=== PATIENT | female | born 1945 | race Caucasian/White ===

== ENCOUNTER 2023-07-01 11:31 | Emergency (ER) | payer MEDICARE, BC, SELFPAY ==
[2023-07-01] VITALS (10 sets, daily range): BP systolic 136–186; BP diastolic 88–125; PULSE 79–103; RESP 12–18; TEMP 36.7; O2SAT 94–98; BMI 33.6
--- NOTE | 2023-07-01 11:35 | ED.GENADULT ---
HPI - General Adult General Date Seen: 07/01/23 Chief complaint: Arrhythmia/Palpitations Stated complaint: irregular heartbeat Time Seen by Provider: 07/01/23 11:35 History of Present Illness HPI narrative: 78-year-old female who has a past medical history of hypertension, pericardial cyst, hyperlipidemia, colon polyps, depression, sleep apnea, obesity. She has no previous history of coronary disease or arrhythmia or previous diagnosis of AFib. According to records from [facility] obtained through [facility] medication list includes aspirin 81 mg daily, Coreg 25 mg b.i.d., losartan/hydrochlorothiazide 100/25 mg daily, verapamil 180 mg daily, levothyroxine, Tylenol, vitamin-D, vitamin B12, fluticasone nasal spray rosuvastatin 5 mg q.h.s., as well as supplements. She does recall that she has had intermittent episodes of a funny feeling in her chest off and on for several months, perhaps every month or so. She has never really had exact symptoms like today before. She has never gone to the doctor or had any cardiac monitoring or diagnosis of AFib. She does recall that in the past she had an MRI done [facility] that apparently showed a pericardial cyst. She and her have been sick for about 2 weeks with cough, nasal congestion, and upper respiratory symptoms. They actually picked up their cold while they were traveling on an airplane. is largely recovered from his illness but she has had a persistent cough and nasal congestion. Her symptoms started with nasal congestion, headache, fatigue, cough. She has had persisting nasal congestion, sinus fullness, and cough. No fever. No chest pain. No hemoptysis. She did do an at home COVID test which was negative, but she thinks the COVID test was old and may have been . She was otherwise normal yesterday. No palpitations. When she woke up in the middle the night she thought something might have felt funny in her chest but she was sleepy and went back to bed. Since she woke up this morning she has an irregular heartbeat that feels funny in her chest. No chest pain. No fainting. No trouble breathing. No swelling in her legs. Related Data Home Medications ?Medication ?Instructions ?Recorded ?Confirmed carvedilol 25 mg tablet 25 mg PO BID 07/01/23 07/01/23 levothyroxine 75 mcg tablet 75 mcg PO DAILY 07/01/23 07/01/23 losartan 100 1 tab PO DAILY 07/01/23 07/01/23 mg-hydrochlorothiazide 25 mg tablet verapamil 180 mg 24 hr 180 mg PO BID 07/01/23 07/01/23 capsule,extended release Previous Rx's ?Medication ?Instructions ?Recorded apixaban 5 mg tablet (Eliquis) 5 mg PO BID #60 tabs 07/01/23 Allergies Allergy/AdvReac Type Severity Reaction Status Date / Time No Known Drug Allergies Allergy Verified 07/01/23 11:37 [facility] Social History Smoking Status: Never smoker How often do you have a drink containing alcohol: never AUDIT-C Alcohol total score: 0 Non-prescribed substance use: denies use Exam Narrative: Exam Narrative: Primary Survey: A- patent. Speaking clearly. Phonation normal. No stridor. B- breathing easily. Lung sounds clear and equal. Oxygen saturation normal on room air C- no active bleeding. Blood pressure stable. Symmetric pulses and cap refill in 4 extremities. D- alert and oriented x3. GCS 15. No focal deficits. Constitutional: Appears well-developed and well-nourished. Alert. Conversant. Non toxic. HENT: Head: Atraumatic. Nose: Nose normal. Mouth/Throat: Oral mucosa is clear and moist. no trismus. Pharynx normal. Tonsils symmetric. No tonsillar enlargement, erythema, or exudate. Eyes: Conjunctivae normal. EOM normal. Pupils equal, round, and reactive to light. No scleral icterus. Neck: Normal range of motion. Neck supple. No tracheal deviation present. Cardiovascular: Normal rate, irregularly irregular rhythm. No gallop. No friction rub. No murmur heard. Symmetric radial and PT artery pulses . No JVD Pulmonary/Chest: Effort normal. No stridor. No respiratory distress. No wheezes. No rales. No rhonchi . No tenderness. Abdominal: Soft. Bowel sounds normal. No distension. No mass. No tenderness. No rebound. No guarding. Musculoskeletal: RUE: Normal range of motion. No tenderness. No deformity LUE: Normal range of motion. No tenderness. No deformity RLE: Normal range of motion. No edema. No tenderness. No deformity LLE: Normal range of motion. No edema. No tenderness. No deformity Neurological: Alert and oriented to person, place, and time. Normal strength. CN II-VII intact. No sensory deficit. GCS eye subscore is 4. GCS verbal subscore is 5. GCS motor subscore is 6. Normal coordination Skin: Skin is warm and dry. No rash noted. No pallor. Normal capillary refill. Psychiatric: Normal mood. Normal affect. Const: Vital Signs, click to edit/add: Vital Signs - 24 hr 07/01/23 11:35 Temperature 98.0 F Pulse Rate [Pulse Oximeter] 103 H Respiratory Rate 16 Blood Pressure [[facility]] 159/111 H Pulse Oximetry 98 Oxygen Delivery Me thod Room Air Course Vital Signs Vital signs: Initial Vital Signs Temperature 98.0 F 07/01/23 11:35 Temperature Source Temporal Artery Scan 07/01/23 11:35 Pulse Rate 103 H 07/01/23 11:35 Pulse Rhythm Irregular 07/01/23 11:35 Respiratory Rate 16 07/01/23 11:35 Blood Pressure 159/111 H 07/01/23 11:35 Blood Pressure Mean 127 H 07/01/23 11:35 Blood Pressure Position Sitting 07/01/23 11:35 Pulse Oximetry 98 07/01/23 11:35 Oxygen Delivery Method Room Air 07/01/23 11:35 Vital Signs Temperature 98.0 F 07/01/23 11:35 Pulse Rate 103 H 07/01/23 11:35 Respiratory Rate 16 07/01/23 11:35 Blood Pressure 159/111 H 07/01/23 11:35 Pulse Oximetry 98 07/01/23 11:35 Oxygen Delivery Method Room Air 07/01/23 11:35 Temperature 98.0 F 07/01/23 11:35 Pulse Rate 103 H 07/01/23 11:35 Respiratory Rate 16 07/01/23 11:35 Blood Pressure 159/111 H 07/01/23 11:35 Pulse Oximetry 98 07/01/23 11:35 Oxygen Delivery Method Room Air 07/01/23 11:35 Medications Administered Medications: Discontinued Medications Generic Name Dose Route Start Last Admin Trade Name Freq PRN Reason Stop Dose Admin Lactated Ringer's 1,000 ml 07/01/23 12:10 07/01/23 13:07 Lactated Ringers 1000 Ml IV 07/01/23 12:11 1,000 ml ONCE ONE Administration Medical Decision Making MDM Narrative Medical decision making narrative: This patent presents for evaluation of palpitations, that began sometime overnight last night and persisted to until she arrived here in the ER. EKG confirms atrial fibrillation with a controlled ventricular response rate. When asked, she says she has probably had intermittent episodes like this off and on for several months. Therefore this is not a clear new onset AFib. Chads 2 Vasc score is 4 which put her at roughly 4.8% annual risk of stroke. Therefore since this is not a definitively new onset AFib and could potentially and probably is paroxysmal AFib, would hold off on direct electrical cardioversion today. Laboratory studies are reassuring. Clinical symptoms not suggestive for ACS. She has had a recent cough, nasal congestion, and respiratory illness. She had done at home COVID test which was negative but we did repeat a COVID PCR test today and she is positive for coronavirus. At this point with 2 weeks of symptoms she would be beyond the window for treatment with Paxlovid. Unclear whether not COVID could be contributing to her AFib. At this point she is not hypoxic. No respiratory distress. No signs of renal failure. Chest x-ray negative for any infiltrates or pneumonia. At this point she does not require hospitalization from a coronavirus infection standpoint. No signs of CHF clinically or on her chest x-ray to suggest viral myocarditis. She is rate controlled, likely because she is already on carvedilol 25 mg b.i.d.. She is mildly symptomatic but hemodynamically stable. At this point I think she is safe for outpatient management. Given stroke risk ([id number] =4) I do think she needs prophylaxis. Discussed with Cardiology from [facility], Dr. Nichols We will initiate Eliquis 5 mg b.i.d. for stroke prophylaxis. Discussed with patient and the patient is in agreement. Will not change medication at this point as already beta-blocked and would not increase. Should see cardiology for consideration of oral rhythm control vs watchful waiting. Cardiology from [facility] will have the clinic call her this week to arrange an outpatient follow-up appointment. Precautions for return to the ER reviewed. Questions answered. Lab Data Labs: Lab Results 07/01/23 Range/Units 12:50 WBC 9.36 (4.50-11.00) K/uL RBC 5.01 (4.00-5.20) m/uL Hgb 14.4 (12.0-16.0) gm/dL Hct 44.3 (33.0-51.0) % MCV 88 (80-100) fL MCH 29 (26-34) pg MCHC 33 (32-36) gm/dL RDW Coeff of Marichuy 12.7 (11.5-15.5) % Plt Count 363 (140-440) K/uL Neut % (Auto) 66.8 (42.0-72.0) % Lymph % (Auto) 22.3 (20-44) % [place] % (Auto) 7.8 (0.0-11.0) % Eos % (Auto) 2.8 (0.0-7.0) % Baso % (Auto) 0.1 (0.0-3.0) % Neut # (Auto) 6.25 (1.7-7.0) K/uL Lymph # (Auto) 2.09 (0.90-2.90) K/uL [place] # (Auto) 0.70 (0.00-0.90) K/UL Eos # (Auto) 0.26 (0.00-0.50) K/uL Baso # (Auto) 0.01 (0.00-0.30) K/uL Abs Immat Gran (auto) 0.02 (0.00-0.30) K/uL Imm/Tot Granulo (auto) 0.2 % Sodium 140 (135-149) mmol/L Potassium 4.5 (3.6-5.1) mmol/L Chloride 107 (96-114) mmol/L Carbon Dioxide 27 (20-32) mmol/L Anion Gap 6 L (7-15) mEq/L BUN 23 (7-30) mg/dL Creatinine 0.6 (0.5-1.5) mg/dL Estimated Creat Clear 35.55 Estimated GFR 92 ml/min Glucose 99 (60-115) mg/dL Calcium 9.8 (8.4-10.6) mg/dL Troponin I < 0.01 L (0.01-0.04) ng/mL TSH 1.740 (0.270-4.200) uIU/mL SARS-CoV-2 (PCR) POSITIVE SARS-CoV-2 A (Negative) Influenza Type A (PCR) Negative PCR FLU A (Negative) Influenza Type B (PCR) Negative PCR FLU B (Negative) RSV (PCR) Negative PCR RSV (Negative) Imaging Data Chest x-ray: Attestation: I have reviewed the pertinent imaging results. Radiologist's impression: IMPRESSION: No imaging findings pertinent to the indication for the exam no acute findings. ECG Data Attestation: I personally reviewed and interpreted this ECG as follows: Interpretation: Atrial fibrillation Rate: 96 AK: Not applicable QRS axis: Left axis deviation. Left bundle-branch block ST segment/T wave: No ST segment elevation or depression. There is discordant ST elevation in V1 and V2 discordant from the QRS pattern and does not indicate STEMI. QTc: 480 Discharge Plan Discharge Clinical Impression: Atrial fibrillation Patient Disposition: Home, Self-Care Condition: Stable Instructions: A-fib (Atrial Fibrillation) (ED), Blood Thinners (ED) Additional Instructions: As we discussed, please continue on your current medications. We will add a new blood thinning medication called Eliquis. This is taken twice per day. 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 You should receive a phone call from the blood bank laboratory technician's at [facility] to arrange an outpatient follow-up appointment. If you do not receive a phone call from them by Sunday, call your blood bank laboratory technician (or call your primary care provider) to arrange an outpatient follow-up with Cardiology. Come back to the ER right away if you have any problems-especially if you have heart rate more than 110, chest pain, trouble breathing, dizzy spells or fainting, worsening weakness, or any other problems. Prescriptions: New Eliquis 5 mg tablet 5 mg PO BID Qty: 60 2RF No Action carvedilol 25 mg tablet 25 mg PO BID levothyroxine 75 mcg tablet 75 mcg PO DAILY verapamil 180 mg capsule,ext rel. pellets 24 hr 180 mg PO BID losartan-hydrochlorothiazide 100-25 mg tablet 1 tab PO DAILY Follow Up/Referrals: Renetta Quick PA-C [Primary Care Provider] - Stand Alone Forms: Gusto Info Instructions
--- NOTE | 2023-07-01 12:10 | CRLHL7_ITS ---
For Patients: As a result of the Cures Act, medical imaging exams and procedure reports are released immediately into your electronic medical record. You may view this report before your referring provider. If you have questions, please contact your health care provider. INDICATION: Cough. Atrial fibrillation. COMPARISON: None available. TECHNIQUE: 2 views. FINDINGS: Medical Devices: None. Lung Volumes: Adequate inspiration. No significant atelectasis. Lungs: Clear lungs. Pleura and Pleural spaces: No significant pleural effusion. No pneumothorax. Mediastinum: Normal cardiomediastinal silhouette. Bony Thorax and Soft Tissues: No significant incidental findings. IMPRESSION: No imaging findings pertinent to the indication for the exam no acute findings. Dictated by Jose Barors MD @ 07/01/2023 1:51:11 PM (Electronically Signed)
[2023-07-01 13:01] LABS: Basophils Absolute Auto 0.01 K/uL (0.00-0.30); Basophils Percent Auto 0.1 % (0.0-3.0); Eosinophils Absolute Auto 0.26 K/uL (0.00-0.50); Eosinophils Percent Auto 2.8 % (0.0-7.0); Hematocrit 44.3 % (33.0-51.0); Hemoglobin* 14.4 gm/dL (12.0-16.0); Immature Granulocytes Abs Auto 0.02 K/uL (0.00-0.30); Immature Granulocytes Pct Auto 0.2 %; Lymphocytes Absolute Auto 2.09 K/uL (0.90-2.90); Lymphocytes Percent Auto 22.3 % (20-44); Mean Corpuscular HGB Conc 33 gm/dL (32-36); Mean Corpuscular Hemoglobin 29 pg (26-34); Mean Corpuscular Volume 88 fL (80-100); Monocytes Percent Auto 7.8 % (0.0-11.0); Neutrophils Absolute Auto 6.25 K/uL (1.7-7.0); Neutrophils Percent Auto 66.8 % (42.0-72.0); Platelet Count* 363 K/uL (140-440); RDW Coefficient of Variation % 12.7 % (11.5-15.5); Red Blood Count 5.01 m/uL (4.00-5.20); White Blood Count* 9.36 K/uL (4.50-11.00)
[2023-07-01 13:05] LABS: Slide Review Reflex No
[2023-07-01] MEDS: LACTATED RINGERS 1000 ML IV (13:07)
[2023-07-01 13:14] LABS: Chloride* 107 mmol/L (96-114); Potassium* 4.5 mmol/L (3.6-5.1); Sodium* 140 mmol/L (135-149)
[2023-07-01 13:17] LABS: Anion Gap 6 mEq/L (7-15); Blood Urea Nitrogen* 23 mg/dL (7-30); Carbon Dioxide* 27 mmol/L (20-32); Creatinine* 0.6 mg/dL (0.5-1.5); Est. Creatinine Clearance* 35.55; Estimated Glomerular Filt Rate 92 ml/min; Glucose* 99 mg/dL (60-115)
[2023-07-01 13:18] LABS: Calcium* 9.8 mg/dL (8.4-10.6)
[2023-07-01 13:30] LABS: Troponin I* < 0.01 ng/mL (0.01-0.04)
[2023-07-01 13:37] LABS: PCR FLU A Negative PCR FLU A (Negative); PCR FLU B Negative PCR FLU B (Negative); PCR RSV Negative PCR RSV (Negative); SARS PCR* POSITIVE SARS-CoV-2 (Negative)
== END 2023-07-01 15:15 | disposition home or self-care (01) ==
PROVIDERS: Emergency Provider Emergency Medicine; PCP Physician Assistant Medical
DX: I48.91 Unspecified atrial fibrillation (principal)
CPT/HCPCS: 36415; 71046; 80048; 84443; 84484; 85025; 87631; 93005; 99284; 99285; J7120

== ENCOUNTER 2023-12-28 11:15 | Observation (INO) | payer MEDICARE, BC, SELFPAY ==
[2023-12-28] VITALS (14 sets, daily range): BP systolic 141–177; BP diastolic 60–80; PULSE 63–78; RESP 16–18; TEMP 36.5–37; O2SAT 93–99; BMI 35.0; BMI 36.8
--- NOTE | 2023-12-28 12:02 | ED_ITS ---
HPI - General Adult General Chief complaint: Unspecified Complaint, Adult Stated complaint: anemic/heart iss Time Seen by Provider: 12/28/23 11:20 History of Present Illness HPI narrative: This 78-year-old female and was instructed to come here for evaluation because of a drop in her hemoglobin and she is experiencing related symptoms including shortness of breath and chest discomfort with exertion. The patient had a hemoglobin measured at 8.7 yesterday. About 4 months ago it was almost 4 grams/deciliter higher than this. She does not report any blood loss. She is on Eliquis because of paroxysmal atrial fibrillation. At rest she has no symptoms but she is feeling and increase of shortness of breath and occasions of chest discomfort with exertion over the past week. She does not report any nausea or vomiting. She has not had any diaphoresis. Related Data Home Medications ?Medication ?Instructions ?Recorded ?Confirmed carvedilol 25 mg tablet 25 mg PO BID 07/01/23 12/28/23 levothyroxine 75 mcg tablet 75 mcg PO DAILY 07/01/23 12/28/23 losartan 100 1 tab PO DAILY 07/01/23 12/28/23 mg-hydrochlorothiazide 25 mg tablet verapamil 180 mg 24 hr 180 mg PO DAILY 07/01/23 12/28/23 capsule,extended release Previous Rx's ?Medication ?Instructions ?Recorded apixaban 5 mg tablet (Eliquis) 5 mg PO BID #60 tabs 07/01/23 Allergies Allergy/AdvReac Type Severity Reaction Status Date / Time No Known Drug Allergies Allergy Verified 12/28/23 11:26 Review of Systems Status of ROS: Reports: 10 or more systems reviewed and unremarkable except as noted in History and below Narrative: Constitutional: No fevers, no weight gain or loss. Eyes: No discharge. No vision changes. HENT: No congestion, no sore throat, no ear pain. Cardiovascular: No palpitations. Chest discomfort with exertion. Respiratory: No wheezes, no cough. Shortness of breath with exertion. Gastrointestinal: No abdominal pain, no vomiting, no diarrhea. Genitourinary: No dysuria, no hematuria. Musculoskeletal: Normal range of motion. Skin: No rashes, no pruritis. Neurological: No weakness, sensory change, speech change. Endo/Heme/Allergies: No bruising or bleeding. No polydipsia. Pysch: no suicidality, no anxiety, no insomnia. All other systems reviewed and are negative. [facility] Medical History (Updated 12/28/23 @ 16:56 by Trisha Espinoza MD) Coronary artery disease ?I25.10 - Atherosclerotic heart disease of [place] coronary artery without angina pectoris (ICD-10) Hyperlipidemia ?E78.5 - Hyperlipidemia, unspecified (ICD-10) Hypothyroidism ?E03.9 - Hypothyroidism, unspecified (ICD-10) Essential hypertension ?I10 - Essential (primary) hypertension (ICD-10) Atrial fibrillation ?I48.91 - Unspecified atrial fibrillation (ICD-10) Surgical History (Updated 12/28/23 @ 14:21 by Trisha Espinoza MD) Hx of colonoscopy ?Z98.890 - Other specified postprocedural states (ICD-10) S/P RAJINDER-BSO ?Z90.710 - Acquired absence of both cervix and uterus (ICD-10) ?Z90.722 - Acquired absence of ovaries, bilateral (ICD-10) ?Z90.79 - Acquired absence of other genital organ(s) (ICD-10) Social History (Updated 12/28/23 @ 16:58 by Trisha Espinoza MD) Narrative: Lives in [place] with Sarthak (medical decision maker if needed). Grown children in [place]. No concerning ETOH use, nonsmoker. Full Code. What is your current living situation?: I presently have a place to live Problems where you live: no known problems Problems where you live details: none In the past 12 months, utilities in danger of being shut off: no In the past 12 mos, have been you worried that your food would run out before you had money to buy more?: never true In the past 12 mos, the food you bought just didn't last and you didn't have money to buy more?: never true Highest level of school completed/degree received: some college, no degree Smoking Status: Former smoker How often do you have a drink containing alcohol: monthly or less How many standard drinks containing alcohol do you have on a typical day: 1 or 2 How often do you have six or more drinks on one occasion: Never AUDIT-C Alcohol total score: 1 Non-prescribed substance use: denies use Caffeine: Yes How often does anyone, including family, friends and others, physically hurt you : never How often does anyone, including family, friends and others, insult or talk down to you: never How often does anyone, including family, friends and others, threaten you with harm: never How often does anyone, including family, friends and others, scream or curse at you: never service: No Exam Narrative: Exam Narrative: Constitutional: Well-developed, well-nourished, no acute distress. HEENT: Normocephalic, atraumatic. Neck: Normal range of motion. Nontender. Supple. Heart: Regular. No murmurs. Normal rate. Intact distal pulses. Lungs: Clear to auscultation. No chest discomfort. No wheezes, rhonchi, or rales. Abdomen: Normal bowel sounds. Nontender. No rebound tenderness. Genitalia: Deferred. Back: No midline tenderness. Normal range of motion. Extremities: Normal range of motion. No injury. Skin: Intact. No rash. Warm. No erythema or pallor. Neurologic: No altered sensation. No weakness. Alert and oriented. Psychiatric: No suicidality. No anxiety or depression. No insomnia. Nursing notes and vitals signs are reviewed. Const: Vital Signs, click to edit/add: Vital Signs - 24 hr 12/28/23 11:20 12/28/23 13:00 12/28/23 13:15 Temperature 97.7 F Pulse Rate 65 64 Pulse Rate [Pulse Oximeter] 70 Respiratory Rate 16 Blood Pressure [Ri ght Upper Arm] 171/80 H Pulse Oximetry 99 96 95 Oxygen Delivery Me thod Room Air 12/28/23 13:30 12/28/23 13:45 Temperature Pulse Rate 63 69 Pulse Rate [Pulse Oximeter] Respiratory Rate Blood Pressure [Ri ght Upper Arm] Pulse Oximetry 95 97 Oxygen Delivery Me thod Course Vital Signs Vital signs: Initial Vital Signs Temperature 97.7 F 12/28/23 11:20 Temperature Source Temporal Artery Scan 12/28/23 11:20 Pulse Rate 70 12/28/23 11:20 Respiratory Rate 16 12/28/23 11:20 Blood Pressure 171/80 H 12/28/23 11:20 Blood Pressure Mean 110 H 12/28/23 11:20 Blood Pressure Position Sitting 12/28/23 11:20 Pulse Oximetry 99 12/28/23 11:20 Oxygen Delivery Method Room Air 12/28/23 11:20 Vital Signs Temperature 97.7 F 12/28/23 11:20 Pulse Rate 70 12/28/23 11:20 Respiratory Rate 16 12/28/23 11:20 Blood Pressure 171/80 H 12/28/23 11:20 Pulse Oximetry 99 12/28/23 11:20 Oxygen Delivery Method Room Air 12/28/23 11:20 Temperature 98.5 F 12/28/23 15:00 Pulse Rate 73 12/28/23 18:55 Respiratory Rate 18 12/28/23 18:55 Blood Pressure 177/80 H 12/28/23 15:00 Pulse Oximetry 98 12/28/23 15:00 Oxygen Delivery Method Room Air 12/28/23 15:00 Medications Administered Medications: Discontinued Medications Generic Name Dose Route Start Last Admin Trade Name Freq PRN Reason Stop Dose Admin Pantoprazole Sodium 40 mg 12/28/23 14:50 12/28/23 15:50 Pantoprazole Sodium 40 Mg Inj IVP 12/28/23 14:51 40 mg ONCE ONE Administration Medical Decision Making Lab Data Labs: Lab Results 12/28/23 12/28/23 Range/Units 11:56 12:12 WBC 8.44 (4.50-11.00) K/uL RBC 3.66 L (4.00-5.20) m/uL Hgb 8.7 L (12.0-16.0) gm/dL Hct 29.9 L (33.0-51.0) % MCV 82 (80-100) fL MCH 24 L (26-34) pg MCHC 29 L (32-36) gm/dL RDW Coeff of Marichuy 14.3 (11.5-15.5) % Plt Count 404 (140-440) K/uL Neut % (Auto) 65.6 (42.0-72.0) % Lymph % (Auto) 20.0 (20-44) % [place] % (Auto) 10.9 (0.0-11.0) % Eos % (Auto) 2.6 (0.0-7.0) % Baso % (Auto) 0.8 (0.0-3.0) % Neut # (Auto) 5.53 (1.7-7.0) K/uL Lymph # (Auto) 1.69 (0.90-2.90) K/uL [place] # (Auto) 0.90 (0.00-0.90) K/UL Eos # (Auto) 0.22 (0.00-0.50) K/uL Baso # (Auto) 0.07 (0.00-0.30) K/uL Abs Immat Gran (auto) 0.01 (0.00-0.30) K/uL Imm/Tot Granulo (auto) 0.1 % INR 1.21 H (0.91-1.10) Sodium 137 (135-149) mmol/L Potassium 4.1 (3.6-5.1) mmol/L Chloride 104 (96-114) mmol/L Carbon Dioxide 28 (20-32) mmol/L Anion Gap 5 L (7-15) mEq/L BUN 19 (7-30) mg/dL Creatinine 0.7 (0.5-1.5) mg/dL Estimated Creat Clear 35.55 Estimated GFR 89 ml/min Glucose 103 (60-115) mg/dL Calcium 9.9 (8.4-10.6) mg/dL Iron 36 L (37-170) ug/dL TIBC 392 (265-497) ug/dL % Saturation 9 L (20-50) % Total Bilirubin 0.1 (0.1-1.5) mg/dL Direct Bilirubin 0.1 (0.0-0.5) mg/dL AST 17 (12-35) U/L ALT 16 (4-35) U/L Alkaline Phosphatase 70 (40-150) U/L Total Protein 7.0 (6.0-8.3) g/dL Albumin 4.1 (3.3-5.0) g/dL Vitamin B12 647 (243-894) pg/mL TSH 2.470 (0.270-4.20) uIU/mL POC Troponin I 0.00 L (0.01-0.04) ng/ml Blood Type A Positive Antibody Screen NEGATIVE ECG Data Attestation: I personally reviewed and interpreted this ECG as follows: Interpretation: Normal sinus rhythm. Left bundle branch block which is not new compared to previous. Rate is 68 beats per minute.
[2023-12-28 12:26] LABS: Basophils Absolute Auto 0.07 K/uL (0.00-0.30); Basophils Percent Auto 0.8 % (0.0-3.0); Eosinophils Absolute Auto 0.22 K/uL (0.00-0.50); Eosinophils Percent Auto 2.6 % (0.0-7.0); Hematocrit 29.9 % (33.0-51.0); Hemoglobin* 8.7 gm/dL (12.0-16.0); Immature Granulocytes Abs Auto 0.01 K/uL (0.00-0.30); Immature Granulocytes Pct Auto 0.1 %; Lymphocytes Absolute Auto 1.69 K/uL (0.90-2.90); Mean Corpuscular HGB Conc 29 gm/dL (32-36); Mean Corpuscular Hemoglobin 24 pg (26-34); Mean Corpuscular Volume 82 fL (80-100); Monocytes Percent Auto 10.9 % (0.0-11.0); Neutrophils Absolute Auto 5.53 K/uL (1.7-7.0); Neutrophils Percent Auto 65.6 % (42.0-72.0); Platelet Count* 404 K/uL (140-440); RDW Coefficient of Variation % 14.3 % (11.5-15.5); Red Blood Count 3.66 m/uL (4.00-5.20); White Blood Count* 8.44 K/uL (4.50-11.00)
[2023-12-28 12:36] LABS: Slide Review Reflex No
[2023-12-28 12:38] LABS: Albumin* 4.1 g/dL (3.3-5.0)
[2023-12-28 12:39] LABS: Chloride* 104 mmol/L (96-114); Potassium* 4.1 mmol/L (3.6-5.1); Sodium* 137 mmol/L (135-149)
[2023-12-28 12:40] LABS: INR 1.21 (0.91-1.10); Prothrombin Time 16.1 Seconds
[2023-12-28 12:41] LABS: Alkaline Phosphatase* 70 U/L (40-150); Anion Gap 5 mEq/L (7-15); Aspartate Amino Transferase* 17 U/L (12-35); Bilirubin Direct* 0.1 mg/dL (0.0-0.5); Bilirubin Total* 0.1 mg/dL (0.1-1.5); Blood Urea Nitrogen* 19 mg/dL (7-30); Carbon Dioxide* 28 mmol/L (20-32); Creatinine* 0.7 mg/dL (0.5-1.5); Est. Creatinine Clearance* 35.55; Estimated Glomerular Filt Rate 89 ml/min
[2023-12-28 12:42] LABS: Alanine Aminotransferase* 16 U/L (4-35); Calcium* 9.9 mg/dL (8.4-10.6); Glucose* 103 mg/dL (60-115)
[2023-12-28 12:53] LABS: Iron* 36 ug/dL (37-170)
[2023-12-28 13:02] LABS: Percent Iron Saturation 9 % (20-50); Total Iron Binding Capacity 392 ug/dL (265-497)
[2023-12-28 13:30] LABS: Vitamin B12* 647 pg/mL (243-894)
--- NOTE | 2023-12-28 15:00 | P.IMHP_ITS ---
Hospitalist- H&P: HPI History of Present Illness Date Seen: 12/28/23 Chief complaint: anemic/heart iss Narrative: Sultana Novoa is a 78 year old female who presented to the ER at the behest of her PCP for acute on chronic dyspnea in the setting of subacute anemia. She had labs done at the [facility] last week and Hgb was 8.7 (previously 12.5 in August 2023). She was being seen for DE LEON at that time; PCP reviewed symptoms with Training Director who recommended an outpatient stress echocardiogram. Today, she was seen again in followup, Hgb stable at 8.7. Repeat EKG noted new ST depressions in II, III, aVF. Given these findings, ER visit recommended. ER Course and Findings: - EKG: SR with LBBB (not new), troponin 0 - Hgb 8.7 - VS reassuring Upon arrival to the floor, patient has no acute concerns for hospitalist. No CP at rest. Her dyspnea on exertion has been present chronically, seems worse in the past few weeks to months. Denies PND, denies orthopnea. Has mild BLE edema, stable/unchanged. Review of Systems Status of ROS: Reports: 10 or more systems reviewed and unremarkable except as noted in History and below Narrative: - sometimes has abdominal discomfort, no classic GERD symptoms - no melena, no hematochezia - last colonoscopy 2020, 4mm tubular adenoma retrieved at that time [facility] Medical History (Updated 12/28/23 @ 16:56 by Trisha Espinoza MD) Coronary artery disease ?I25.10 - Atherosclerotic heart disease of [place] coronary artery without angina pectoris (ICD-10) Hyperlipidemia ?E78.5 - Hyperlipidemia, unspecified (ICD-10) Hypothyroidism ?E03.9 - Hypothyroidism, unspecified (ICD-10) Essential hypertension ?I10 - Essential (primary) hypertension (ICD-10) Atrial fibrillation ?I48.91 - Unspecified atrial fibrillation (ICD-10) Surgical History (Updated 12/28/23 @ 14:21 by Trisha Espinoza MD) Hx of colonoscopy ?Z98.890 - Other specified postprocedural states (ICD-10) S/P RAJINDER-BSO ?Z90.710 - Acquired absence of both cervix and uterus (ICD-10) ?Z90.722 - Acquired absence of ovaries, bilateral (ICD-10) ?Z90.79 - Acquired absence of other genital organ(s) (ICD-10) Social History (Updated 12/28/23 @ 16:58 by Trisha Espinoza MD) Narrative: Lives in [place] with Sarthak (medical decision maker if needed). Grown children in [place]. No concerning ETOH use, nonsmoker. Full Code. What is your current living situation?: I presently have a place to live Problems where you live: no known problems Problems where you live details: none In the past 12 months, utilities in danger of being shut off: no In the past 12 mos, have been you worried that your food would run out before you had money to buy more?: never true In the past 12 mos, the food you bought just didn't last and you didn't have money to buy more?: never true Highest level of school completed/degree received: some college, no degree Smoking Status: Former smoker How often do you have a drink containing alcohol: monthly or less How many standard drinks containing alcohol do you have on a typical day: 1 or 2 How often do you have six or more drinks on one occasion: Never AUDIT-C Alcohol total score: 1 Non-prescribed substance use: denies use Caffeine: Yes How often does anyone, including family, friends and others, physically hurt you : never How often does anyone, including family, friends and others, insult or talk down to you: never How often does anyone, including family, friends and others, threaten you with harm: never How often does anyone, including family, friends and others, scream or curse at you: never service: No Meds Home Medications and Allergies Home Medications ?Medication ?Instructions ?Recorded ?Confirmed ?Type carvedilol 25 mg tablet 25 mg PO BID 07/01/23 12/28/23 History levothyroxine 75 mcg tablet 75 mcg PO DAILY 07/01/23 12/28/23 History losartan 100 1 tab PO DAILY 07/01/23 12/28/23 History mg-hydrochlorothiazide 25 mg tablet verapamil 180 mg 24 hr 180 mg PO DAILY 07/01/23 12/28/23 History capsule,extended release Allergies Allergy/AdvReac Type Severity Reaction Status Date / Time No Known Drug Allergies Allergy Verified 12/28/23 11:26 Exam Narrative: Exam Narrative: GEN: Alert and sitting comfortably in bed, speaking in full sentences HEENT: EOMIs bilaterally, no scleral icterus CV: RRR, No concerning murmurs R: LCTA bilaterally without concerning wheezing, air movement adequate Ab: Soft, nontender, no HSM Ext: Trace BLE edema Skin: No concerning skin lesions or rashes on exposed skin Neuro: Nonfocal Psych: Appropriate Const: Vital Signs, click to edit/add: Vital Signs - 24 hr 12/28/23 11:20 12/28/23 13:00 12/28/23 13:15 Temperature 97.7 F Pulse Rate 65 64 Pulse Rate [Pulse Oximeter] 70 Respiratory Rate 16 Blood Pressure [Le ft Arm] Blood Pressure [Ri ght Upper Arm] 171/80 H Pulse Oximetry 99 96 95 Oxygen Delivery Me thod Room Air 12/28/23 13:30 12/28/23 13:45 12/28/23 14:00 Temperature Pulse Rate 63 69 68 Pulse Rate [Pulse Oximeter] Respiratory Rate Blood Pressure [Le ft Arm] Blood Pressure [Ri ght Upper Arm] Pulse Oximetry 95 97 97 Oxygen Delivery Me thod 12/28/23 14:28 Temperature Pulse Rate Pulse Rate [Pulse Oximeter] 73 Respiratory Rate 18 Blood Pressure [Le ft Arm] 177/80 H Blood Pressure [Ri ght Upper Arm] Pulse Oximetry 98 Oxygen Delivery Me thod Room Air Hospitalist - H&P: Result Labs Labs: Short CBC 12/28/23 Range/Units 12:12 WBC 8.44 (4.50-11.00) K/uL Hgb 8.7 L (12.0-16.0) gm/dL Hct 29.9 L (33.0-51.0) % Plt Count 404 (140-440) K/uL BMP 12/28/23 12:12 Sodium 137 Potassium 4.1 Chloride 104 Carbon Dioxide 28 BUN 19 Creatinine 0.7 Glucose 103 Calcium 9.9 Liver Function 12/28/23 Range/Units 12:12 Total Bilirubin 0.1 (0.1-1.5) mg/dL Direct Bilirubin 0.1 (0.0-0.5) mg/dL AST 17 (12-35) U/L ALT 16 (4-35) U/L Alkaline Phosphatase 70 (40-150) U/L Albumin 4.1 (3.3-5.0) g/dL Assessment and Plan Assessment and plan (1) Anemia: Problem comment: - source and acuity unclear, Hgb >12 in August 2023 - follow Hgb, hold Eliquis Status: Acute (2) Atrial fibrillation: Problem comment: - diagnosed June 2023 - currently in SR, anticoagulated on Eliquis as an outpatient - last TTE August 2023: Final Impressions: 1. Normal LV size, mildly increased wall thickness, normal global systolic function with an estimated EF of 60 - 65%. 2. Severely enlarged left atrium. 3. Right ventricular cavity size is normal, global systolic RV function is normal. 4. The aortic valve is trileaflet and sclerotic, no stenosis and mild regurgitation. 5. The mitral valve is sclerotic, mild mitral regurgitation. Status: Acute (3) Dyspnea on exertion: Problem comment: - acute on chronic - anemia vs cardiac disease - CXR obtained 12/27: L linear opacities (infiltrate vs atelectasis). No cough, fever, tachycardia. Normal WBC, defer abx at this time and continue to follow - follow troponins, monitor on telemetry Status: Acute Plan - follow Hgb and Troponin - pending clinical course, possibly d/c home as early as tomorrow with outpatient EGD - updated at bedside, questions answered
--- NOTE | 2023-12-28 15:27 | CRLHL7_ITS ---
For Patients: As a result of the Century Cures Act, medical imaging exams and procedure reports are released immediately into your electronic medical record. You may view this report before your referring provider. If you have questions, please contact your health care provider. INDICATION: Dyspnea on exertion TECHNIQUE: Chest 1 views. COMPARISON: 07/01/2023 FINDINGS: Cardiovasculature and mediastinum: Cardiomegaly. Increased conspicuity of a right perihilar opacity, which is favored to represent a prominent pulmonary artery. Otherwise, unremarkable mediastinum. Lungs and pleural spaces: Few left basal linear opacities. No sign of pleural effusion. No pneumothorax. Bones and soft tissues: No significant findings. IMPRESSION: Few left basal linear opacities are indeterminate for atelectasis versus pneumonia. Dictated by Miladis Roa MD @ 12/28/2023 4:43:18 PM (Electronically Signed)
[2023-12-28] MEDS: PANTOPRAZOLE SODIUM 40 MG INJ IVP (15:50)
[2023-12-28 19:36] LABS: Hemoglobin* 8.2 gm/dL (12.0-16.0)
[2023-12-28 20:14] LABS: Troponin I* < 0.01 ng/mL (0.01-0.04)
[2023-12-28] MEDS: LEVOTHYROXINE 75 MCG TABLET PO (20:41)
[2023-12-28] MEDS: hydroCHLOROthiazide 25 MG TABLET PO (20:41)
[2023-12-28] MEDS: carvediloL 25 MG TABLET PO (20:42)
[2023-12-28] MEDS: SODIUM CHLORIDE 0.9 % (FLUSH) 10 ML SYRINGE 5 ML IVF (20:42)
[2023-12-28] MEDS: LOSARTAN POTASSIUM 50 MG TABLET 100 MG PO (20:42)
[2023-12-29] VITALS (13 sets, daily range): BP systolic 140–176; BP diastolic 64–82; PULSE 7–79; RESP 18; TEMP 36.6–36.9; O2SAT 94–99
--- NOTE | 2023-12-29 06:22 | PC.NURSE ---
End of shift [id number]: Pt AxOx4, pleasant, and cooperative. Pt denies Pain, CP, SOB during the entirety of shift. Pt on RA, Afebrile. Pt indep in room. Continent of the bladder. Awaiting stool sample, hat in place. Pt tolerating reg diet/fluids well. Pt appears resting with call light in reach.
[2023-12-29] MEDS: OMEPRAZOLE 20 MG CAPSULE DR 40 MG PO (06:36)
[2023-12-29 06:58] LABS: Basophils Absolute Auto 0.06 K/uL (0.00-0.30); Basophils Percent Auto 0.7 % (0.0-3.0); Eosinophils Absolute Auto 0.24 K/uL (0.00-0.50); Immature Granulocytes Abs Auto 0.01 K/uL (0.00-0.30); Immature Granulocytes Pct Auto 0.1 %; Lymphocytes Absolute Auto 2.12 K/uL (0.90-2.90); Lymphocytes Percent Auto 26.4 % (20-44); Mean Corpuscular HGB Conc 29 gm/dL (32-36); Mean Corpuscular Hemoglobin 24 pg (26-34); Mean Corpuscular Volume 82 fL (80-100); Monocytes Percent Auto 10.7 % (0.0-11.0); Neutrophils Absolute Auto 4.73 K/uL (1.7-7.0); Neutrophils Percent Auto 59.1 % (42.0-72.0); Platelet Count* 393 K/uL (140-440); RDW Coefficient of Variation % 14.5 % (11.5-15.5); White Blood Count* 8.02 K/uL (4.50-11.00)
[2023-12-29 07:01] LABS: Hemoglobin* 7.9 gm/dL (12.0-16.0)
[2023-12-29 07:10] LABS: Albumin* 3.4 g/dL (3.3-5.0); Chloride* 107 mmol/L (96-114); Potassium* 3.8 mmol/L (3.6-5.1); Sodium* 138 mmol/L (135-149)
[2023-12-29 07:12] LABS: Creatinine* 0.7 mg/dL (0.5-1.5); Est. Creatinine Clearance* 35.55; Estimated Glomerular Filt Rate 89 ml/min
[2023-12-29 07:13] LABS: Alanine Aminotransferase* 13 U/L (4-35); Anion Gap 5 mEq/L (7-15); Aspartate Amino Transferase* 16 U/L (12-35); Blood Urea Nitrogen* 18 mg/dL (7-30); Calcium* 9.1 mg/dL (8.4-10.6); Carbon Dioxide* 26 mmol/L (20-32); Glucose* 112 mg/dL (60-115)
[2023-12-29 07:17] LABS: Bilirubin Total* < 0.1 mg/dL (0.1-1.5)
[2023-12-29 08:44] LABS: Slide Review Reflex No
[2023-12-29 09:22] LABS: Alkaline Phosphatase* 62 U/L (40-150)
[2023-12-29 09:42] LABS: NT Pro B Type NatriureticPept* 80 pg/mL
[2023-12-29] MEDS: SODIUM CHLORIDE 0.9 % (FLUSH) 10 ML SYRINGE 5 ML IVF (14:21)
[2023-12-29 14:31] LABS: Hemoglobin* 10.2 gm/dL (12.0-16.0)
--- NOTE | 2023-12-29 14:38 | P.DS_ITS ---
DS: Providers Provider Date Seen: 12/29/23 Date of admission: 12/28/23 13:57 Primary care physician: Renetta Quick PA-C Admitting Clinician: Geoffrey Martinez MD Attending Physician on discharge: Geoffrey Martinez MD Date of Discharge: 12/29/23 DS: Diagnosis Discharge Diagnosis (1) Anemia: Status: Acute Problem details: - source and acuity unclear, Hgb >12 in August 2023 - follow Hgb, hold Eliquis (2) Dyspnea on exertion: Status: Acute Problem details: - acute on chronic - anemia vs cardiac disease - CXR obtained 12/27: L linear opacities (infiltrate vs atelectasis). No cough, fever, tachycardia. Normal WBC, defer abx at this time and continue to follow - follow troponins, monitor on telemetry (3) Atrial fibrillation: Status: Acute Problem details: - diagnosed June 2023 - currently in SR, anticoagulated on Eliquis as an outpatient - last TTE August 2023: Final Impressions: 1. Normal LV size, mildly increased wall thickness, normal global systolic function with an estimated EF of 60 - 65%. 2. Severely enlarged left atrium. 3. Right ventricular cavity size is normal, global systolic RV function is normal. 4. The aortic valve is trileaflet and sclerotic, no stenosis and mild regurgitation. 5. The mitral valve is sclerotic, mild mitral regurgitation. DS: Summary Hospital Course Hospital Course: 78-year-old female admitted through the emergency department with worsening exertional dyspnea and fatigue and anemia. Patient is had longstanding exertional fatigue and dyspnea. Is gotten worse recently. She was seen in clinic last week where hemoglobin was 8.7. In our emergency room it was 8.7 on admission. There was no evidence of bleeding. She has not had any bloody or melanotic stools. Previous history of blood-loss anemia from menstrual bleeding prior to her hysterectomy many years ago. No significant problems with anemia or bleeding since then. No evidence of blood loss and she was hospitalized. She has not had a bowel movement. Overnight her hemoglobin dropped from 8.7- 7.9. She received 1 unit transfusion and hemoglobin went to 10.2. Iron studies were obtained and show iron deficiency with iron level of 36, TIBC 392 and% saturation of 9%. At the time of admission her Eliquis for atrial fibrillation was discontinued. She was noted to be in sinus rhythm. She was started on a PPI and oral iron therapy. After discussion of options it was recommended that she undergo upper endoscopy. This will be arranged for Sunday at [facility]. She is to be NPO after midnight Sunday night. She is to hold her Eliquis until after her endoscopy. Resume Eliquis pending the results of endoscopy findings. Outpatient follow-up with primary care to discuss ongoing management and evaluation of her anemia and chronic exertional dyspnea. Status at Discharge Overall status at discharge: patient is progressing back to baseline Time Spent with Patient Time attestation: Total time spent providing and/or coordinating discharge services: 40 minutes Time spent: Greater than 30 minutes Exam Narrative: Exam Narrative: She is alert and appears in no distress. Respirations are clear to auscultation. Cardiovascular: S1, S2, regular rate and rhythm. Abdomen is soft without tenderness or mass. Extremities without edema. She is well perfused in her extremities Const: Vital Signs, click to edit/add: Vital Signs - 24 hr 12/28/23 15:00 12/28/23 17:12 12/28/23 18:55 Temperature 98.5 F Pulse Rate 74 Pulse Rate [Pulse Oximeter] 73 73 Respiratory Rate 18 18 Blood Pressure Blood Pressure [Le ft Arm] 177/80 H Pulse Oximetry [address] thod Room Air 12/28/23 19:00 12/28/23 22:32 12/28/23 23:00 Temperature 98.4 F 98.6 F Pulse Rate 77 Pulse Rate [Pulse Oximeter] 73 78 Respiratory Rate 16 16 Blood Pressure Blood Pressure [Le ft Arm] 153/64 H 141/60 H Pulse Oximetry 97 93 [facility] 12/29/23 03:00 12/29/23 07:15 12/29/23 08:00 Temperature 98.4 F Pulse Rate 70 Pulse Rate [Pulse Oximeter] 76 78 Respiratory Rate 18 18 Blood Pressure Blood Pressure [Le ft Arm] 140/65 H Pulse Oximetry [address] thod Room Air 12/29/23 08:00 12/29/23 11:50 12/29/23 12:05 Temperature 98 F 98.2 F 98.1 F Pulse Rate 78 74 Pulse Rate [Pulse Oximeter] 78 Respiratory Rate 18 18 18 Blood Pressure 161/82 H 163/73 H Blood Pressure [Le ft Arm] 162/78 H Pulse Oximetry 96 96 97 Oxygen Delivery Me thod Room Air Room Air Room Air 12/29/23 12:10 12/29/23 12:40 12/29/23 13:10 Temperature 98.1 F 98.2 F 98 F Pulse Rate 74 77 7 L Pulse Rate [Pulse Oximeter] Respiratory Rate 18 18 18 Blood Pressure 163/73 H 176/72 H 175/76 H Blood Pressure [Le ft Arm] Pulse Oximetry 97 99 96 Oxygen Delivery Me thod Room Air Room Air Room Air 12/29/23 13:40 12/29/23 14:10 12/29/23 14:36 Temperature 98.2 F 98.1 F 98.1 F Pulse Rate 77 73 79 Pulse Rate [Pulse Oximeter] Respiratory Rate 18 18 18 Blood Pressure 148/69 H 152/67 H 169/76 H Blood Pressure [Le ft Arm] Pulse Oximetry 98 98 97 Oxygen Delivery Me thod Room Air Room Air Room Air Documenting provider has reviewed patient's vital signs: yes DS: Data Data Completed and Pending Labs on day of discharge: Labs from last 24 hours 12/29/23 12/29/23 12/29/23 14:20 09:10 05:55 WBC 8.02 RBC 3.30 L Hgb 10.2 L 7.9 L* Hct 27.0 L MCV 82 MCH 24 L MCHC 29 L RDW Coeff of Marichuy 14.5 Plt Count 393 Neut % (Auto) 59.1 Lymph % (Auto) 26.4 Cass % (Auto) 10.7 Eos % (Auto) 3.0 Baso % (Auto) 0.7 Neut # (Auto) 4.73 Lymph # (Auto) 2.12 Cass # (Auto) 0.90 Eos # (Auto) 0.24 Baso # (Auto) 0.06 Abs Immat Gran (auto) 0.01 Imm/Tot Granulo (auto) 0.1 Sodium 138 Potassium 3.8 Chloride 107 Carbon Dioxide 26 Anion Gap 5 L BUN 18 Creatinine 0.7 Estimated Creat Clear 35.55 Estimated GFR 89 Glucose 112 Calcium 9.1 Total Bilirubin < 0.1 L AST 16 ALT 13 Alkaline Phosphatase 62 Troponin I NT-Pro-B Natriuret Pep 80 Total Protein 6.0 Albumin 3.4 TSH Lab Acknowledgement Test Added Blood Type Antibody Screen Crossmatch ([facility]) 12/28/23 12/28/23 12/28/23 19:27 14:55 12:12 WBC RBC Hgb 8.2 L Hct MCV MCH MCHC RDW Coeff of Marichuy Plt Count Neut % (Auto) Lymph % (Auto) Cass % (Auto) Eos % (Auto) Baso % (Auto) Neut # (Auto) Lymph # (Auto) Cass # (Auto) Eos # (Auto) Baso # (Auto) Abs Immat Gran (auto) Imm/Tot Granulo (auto) Sodium Potassium Chloride Carbon Dioxide Anion Gap BUN Creatinine Estimated Creat Clear Estimated GFR Glucose Calcium Total Bilirubin AST ALT Alkaline Phosphatase Troponin I < 0.01 L NT-Pro-B Natriuret Pep Total Protein Albumin TSH 2.470 Lab Acknowledgement Test Added Blood Type A Positive Antibody Screen NEGATIVE Crossmatch ([facility] [place]) See Detail Discharge Plan Discharge Disposition: Home, Self-Care Date of Admission: 12/28/23 13:57 Attending Provider on Discharge: Geoffrey Martinez Primary Care Provider: Renetta Quick Discharge Medications: New ferrous sulfate 325 mg (65 mg iron) tablet 325 mg PO DAILY Qty: 100 0RF omeprazole 40 mg capsule,delayed release(DR/EC) 40 mg PO DAILY Qty: 30 0RF Continued carvedilol 25 mg tablet 25 mg PO BID levothyroxine 75 mcg tablet 75 mcg PO DAILY Rx Instructions: TAKES IN EVENING verapamil 180 mg capsule,ext rel. pellets 24 hr 180 mg PO DAILY losartan-hydrochlorothiazide 100-25 mg tablet 1 tab PO DAILY Rx Instructions: TAKES IN EVENING Discontinued Eliquis 5 mg tablet 5 mg PO BID Qty: 60 2RF Discharge Orders: Discharge Order (Routine); Ordered 12/29/23 Ordered By: Geoffrey Martinez Patient Education: Iron Supplements (By mouth), Omeprazole (By mouth), Anemia (DC) Additional Instructions: Do not eat or drink anything after midnight on Sunday night. Call [facility] endoscopy clinic on Sunday morning between 7 and 8:00 a.m. to set up an upper endoscopy/EGD for Sunday. Dr. Major reports that he has openings in his schedule for endoscopy on Sunday. Do not take Eliquis until after your endoscopy. Based on what is seen on endoscopy the doctor can advise you on when to restart Eliquis. Activity Level: Activity as Tolerated Discharge Diet: Regular Follow Up Appointments: Renetta Quick, PA-C [Primary Care Provider] - Ana Hayden MD [Staff Physician] - 01/09/24 1:00 pm (Follow-up in the next week with Dr. Hayden) Forms: [facility] Info Instructions
--- NOTE | 2023-12-29 16:29 | PC.NURSE ---
Pt received 1 unit of Pack Red Cell with recheck of Hbg at end. See results in chart. IV DC'd, cath tip intact. DC instructions given to pt and spouse. Pt understand to be NPO at midnight 12/30 for possible Upper EDG, and to call for availability on 12/30 @ 0700. All other questions answered. PT left via w/c to return home with @[phone].
--- NOTE | 2023-12-31 10:32 | PC.NURSE ---
Tried to contact patient at the request of Dr. Martinez. she was supposed to come into today to have a scope done as she was in over the weekend. Did not reach the patient but did speak with her Sarthak. He said they had been trying to call the number they were given upon discharge and we not able to reach anyone and had left a long message. Update Dr. Martinez that her said she was wondering if she could reschedule the procedure to next week due to not feeling well has a cough. Spoke with Dr. Martinez he wants them to be seen either urgent care or primary care for COVID swab and a hemoglobin test. set they will do this and call me back and let me know.
--- NOTE | 2023-12-31 12:55 | PC.NURSE ---
Called patient to see if she was able to get tested. She states no she was waiting to hear from her doctor. did also state that she is starting to feel worse and will now consider going to urgent care. I also asked her again to please let me know the results of her covid test and her hemoglobin
--- NOTE | 2023-12-31 15:18 | PC.NURSE ---
Addendum entered by Tana Pelaez RN 01/01/24 07:00: and the need for her to call and schedule to have her procedure done next week. Original Note: Patient called back and notified this commercial lines underwriter that she was seen and she has tested positive for covid and her hemoglobin level in 10.5. Called and update Dr. Martinez. as patient is wondering when she should have the scope procedure. Dr. Martinez would like her to schedule it for sometime next week. Will call her back regarding taking her eliquis.
== END 2023-12-29 16:08 | disposition home or self-care (01) ==
LOC: ED 12:20 → MEDSURG 13:57
PROVIDERS: Family Medicine; Admitting Provider Family Medicine; Emergency Provider Emergency Medicine Emergency Medical Services; PCP Physician Assistant Medical; Visit Provider Family Medicine
DX: D64.9 Anemia, unspecified (principal); R06.09 Other forms of dyspnea; I48.91 Unspecified atrial fibrillation; E61.1 Iron deficiency; I49.8 Other specified cardiac arrhythmias; Z79.01 Long term (current) use of anticoagulants; I10 Essential (primary) hypertension; R07.89 Other chest pain
CPT/HCPCS: 36415; 36430; 71046; 80048; 80053; 80076; 82270; 82607; 83540; 83550; 83880; 84443; 84484; 85018; 85025; 85610; 86850; 86900; 86901; 86922; 93005; 94761; 96374; 99284; 99285; G0378; A9270; J2470; P9016

== ENCOUNTER 2024-04-11 08:23 | Outpatient (CLI) | payer MEDICARE, BC, SELFPAY ==
--- NOTE | 2024-04-11 09:57 | W.ANESCHARGE ---
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
--- NOTE | 2024-04-11 10:02 | W.ANESCHARGE ---
Anesthesia Charges Start Date/Time Anesthesia Start Date: 04/11/24 Anesthesia Start Time: 09:30 Stop Date/Time Anesthesia Stop Date: 04/11/24 Anesthesia Stop Time: 09:57 Summary Extremes of Age - Over 70 or under 1: MDA Coding CPT Codes CPT Codes: ANES UPR GI NDSC PX NOS - 51206 ([id number]) QK - SENIOR ACCOUNTING SPECIALIST 2-4 CNCRNT ANES PROC, QX - COST CONSULTANT SVC W/ MD MED DIRECTION, P3 - PATIENT W/SEVERE SYS DISEASE Additional Codes: Summary - Extremes of Age - Over 70 or under 1: MDA ([id number])
== END 2024-04-11 08:24 | disposition home or self-care (01) ==
PROVIDERS: PCP Student in an Organized Health Care Education/Training Program; Visit Provider Internal Medicine Gastroenterology
DX: D50.9 Iron deficiency anemia, unspecified (principal); K31.89 Other diseases of stomach and duodenum
CPT/HCPCS: 00731; 43239; 88305; 88341; 88342; 99100; J2704; J3490

== ENCOUNTER 2024-10-29 11:10 | Outpatient (CLI) | payer MEDICARE, BC, SELFPAY ==
--- NOTE | 2024-10-27 12:51 | SUR.PREOP ---
Patient contacted appt isaiah left knee appt on 10/29/24. Confirmed appt time of 1115. 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
[2024-10-29 11:22] VITALS: BP 117/69; PULSE 69; TEMP 36.7; O2SAT 96
--- NOTE | 2024-10-29 12:55 | PM.PROC ---
Procedure Note Time Seen by Provider: 12:00 Date Seen: 10/29/24 Provider Contact Time: 12:55 Date of procedure: 10/29/24 Will [facility] bill your pro fee for this procedure?: Yes Procedure: CRYONEUROLYSIS TREATMENT REPORT DATE OF PROCEDURE: 10/29/2024 REFERRING PROVIDER: Tony Sands TREATMENT PROVIDER: Renate Barnett PREOPERATIVE DIAGNOSIS: Left knee osteoarthritis POSTOPERATIVE DIAGNOSIS: Left knee osteoarthritis? PROCEDURE: Cryoneurolysis of Multiple Sensory Nerves of the Knee ANESTHESIA: Local INDICATIONS: The patient is a very pleasant 71-year-old female with primary osteoarthritis involving the left knee who presents today for cryoneurolysis of multiple sensory nerves to the knee for severe knee pain.?Patient medical history was reviewed. The risks, benefits, treatment alternatives, and complications were discussed with the patient, including but not limited to bleeding, infection, nerve or tissue damage.?Informed consent was obtained. ? PRE-TREATMENT MOTOR ASSESSMENT/PAIN SCORE: Patient was able to demonstrate intact gross motor function with plantarflexion, dorsiflexion, adduction, abduction, hip flexion, and extension of the lower extremity.?Pre-treatment pain score of 3 out of 10 in the left knee. DESCRIPTION OF PROCEDURE: After obtaining informed consent, the patient was brought back to the treatment room and positioned supine on the table.?The left lower extremity was prepped with Chlorhexadine.?We began the procedure by performing our procedural pause.?Once this was completed and verified to be accurate, I began the procedure by identifying the nerves with the use of bedside ultrasound.?After the nerves were identified, the skin was marked and, using 1% lidocaine plain, the area of the nerves were anesthetized. ? After the anesthetic was administered, the Smart Tip 2190 cryoneurolysis needle was inserted into the treatment sites using ultrasound guidance.?Treatment was then initiated on the left lower extremity with the following nerves treated: Superior, superior medial, superior lateral, inferior medial genicular nerves. At the termination of the treatment, the cryoneurolysis needle was removed with the patient's skin cleansed and Band-Aids an Keegan bandage applied. Patient tolerated the procedure without any incident or concern.? Patient was then instructed to stand, mobilize the joint, and was examined to ensure gross motor skills were intact. COMPLICATIONS: None POST-TREATMENT PAIN SCORE: 0 out of 10. Left knee DISPOSITION: Discharge instructions were given to the patient with education on the post-procedure expectations. Patient was instructed to call the Ortho clinic with any post-procedure concerns or questions.
[2024-10-29 13:05] VITALS: BP 143/96; PULSE 63; RESP 16; O2SAT 97
== END 2024-10-29 13:07 | disposition home or self-care (01) ==
LOC: OP CLINIC 11:11
PROVIDERS: Visit Provider Nurse Anesthetist, Certified Registered
DX: M17.12 Unilateral primary osteoarthritis, left knee (principal)
CPT/HCPCS: 64640; 76942; C9809

== ENCOUNTER 2024-11-11 08:46 | Day surgery (SDC) | payer MEDICARE, BC, SELFPAY ==
[2024-11-11] VITALS (26 sets, daily range): BP systolic 103–199; BP diastolic 52–91; PULSE 51–83; RESP 14–20; TEMP 35.9–37.3; O2SAT 91–100; BMI 34.2
[2024-11-11] MEDS: SODIUM CHLORIDE 0.9 % (FLUSH) 10 ML SYRINGE IVF (09:52)
[2024-11-11] MEDS: LACTATED RINGERS 1000 ML 1,000 ML 100 ML IV ×2 (09:52→11:45)
[2024-11-11] MEDS: ACETAMINOPHEN 500 MG TABLET 1000 MG PO ×3 (10:12→21:58)
[2024-11-11] MEDS: OXYCODONE (CR) 10 MG TAB.ER.12H PO (10:12)
[2024-11-11] MEDS: MIDAZOLAM HCL 1 MG/ML inj IVP (10:32)
--- NOTE | 2024-11-11 10:44 | SUR.PREOP ---
TIME?OUT:?1030, left knee PT/RN/MDA?VERIFICATION?OF?SURGICAL?SITE,?PROCEDURE,?AND?CONSENT OBTAINED?PRIOR?TO?INVASIVE?PROCEDURE.
[2024-11-11] MEDS: TRANEXAMIC ACID 100 MG/ML INJ 1000 MG IV (11:23)
--- NOTE | 2024-11-11 11:44 | P.ANES_ITS ---
Anesthesia Charges Start Date/Time Anesthesia Start Date: 11/11/24 Anesthesia Start Time: 11:05 Stop Date/Time Anesthesia Stop Date: 11/11/24 Anesthesia Stop Time: 13:18 Summary Extremes of Age - Over 70 or under 1: MDA Coding CPT Codes CPT Codes: ANESTH KNEE ARTHROPLASTY - 19329 ([id number]) P3 - PATIENT W/SEVERE SYS DISEASE, QK - LENS EDGE GRINDER MACHINE 2-4 CNCRNT ANES PROC, QX - POCKET MARKER SVC W/ MD MED DIRECTION Additional Codes: Summary - Extremes of Age - Over 70 or under 1: MDA ([id number])
--- NOTE | 2024-11-11 11:44 | W.PM.NB ---
Nerve Block Nerve Block Time Seen by Provider: 10:40 Date Seen: 11/11/24 Type of block requested by surgeon for post-operative analgesia: adductor canal Side: left Time out performed: Yes Verification of patient name: Yes Verification of date of : Yes Site marking: site marked Name of person performing procedure: Anibal Continuous monitoring Was continuous monitoring of O2 sat, B/P, director of cardiac rehabilitation, recorded every 15 minutes?: Yes Procedure Checklist: sterile prep, needles and gloves Ultrasound guided. Images saved: Yes Medications given in 5ml increments after negative aspiration: Marcaine %: 0.25 mL: 15 Needle gauge: 20 Precedex (mcg): 25 Patient tolerated procedure well: Yes Block Charges Block Charge (with Pro Fee): Femoral Nerve Use of Ultrasound Machine for Block: Yes- US Guidance/pain block
--- NOTE | 2024-11-11 11:44 | W.PM.NB ---
Nerve Block Nerve Block Time Seen by Provider: 10:40 Date Seen: 11/11/24 Type of block requested by surgeon for post-operative analgesia: geniculars Side: left Time out performed: Yes Verification of patient name: Yes Verification of date of : Yes Site marking: site marked Name of person performing procedure: Anibal Continuous monitoring Was continuous monitoring of O2 sat, B/P, chief clerk, recorded every 15 minutes?: Yes Procedure Checklist: sterile prep, needles and gloves Ultrasound guided. Images saved: Yes Medications given in 5ml increments after negative aspiration: Marcaine %: 0.25 mL: 9 Needle gauge: 25 Patient tolerated procedure well: Yes Block Charges Block Charge (with Pro Fee): Genicular Nerve Block
--- NOTE | 2024-11-11 11:44 | W.ANESCHARGE ---
Anesthesia Charges Start Date/Time Anesthesia Start Date: 11/11/24 Anesthesia Start Time: 11:05 Stop Date/Time Anesthesia Stop Date: 11/11/24 Anesthesia Stop Time: 13:18 Summary Extremes of Age - Over 70 or under 1: MDA Coding CPT Codes CPT Codes: ANESTH KNEE ARTHROPLASTY - 87735 ([id number]) P3 - PATIENT W/SEVERE SYS DISEASE, QK - REFRIGERATION UNIT REPAIRER 2-4 CNCRNT ANES PROC, QX - STOCK ROOM MANAGER SVC W/ MD MED DIRECTION Additional Codes: Summary - Extremes of Age - Over 70 or under 1: MDA ([id number])
--- NOTE | 2024-11-11 12:38 | CRLHL7_ITS ---
For Patients: As a result of the Cures Act, medical imaging exams and procedure reports are released immediately into your electronic medical record. You may view this report before your referring provider. If you have questions, please contact your health care provider. Indication: Post Op Technique: Two views left knee Findings/Impression: Hardware from a left total knee arthroplasty is in satisfactory position. Bone alignment is normal. No sign of acute fracture. Postop changes are within normal limits. Dictated by Kevan Valera MD @ 11/11/2024 3:48:24 PM (Electronically Signed)
--- NOTE | 2024-11-11 12:49 | PM.ORPRC ---
Procedure Note Date of procedure: 11/11/24 Procedure: PREOPERATIVE DIAGNOSIS: Left knee osteoarthritis POSTOPERATIVE DIAGNOSIS: Left knee osteoarthritis NAME OF OPERATION: Left total knee arthroplasty SURGEON: Krzysztof Sands MD SAND MIXER OPERATOR: EDDIE Ramirez ANESTHESIA: Spinal ESTIMATED BLOOD LOSS: 0 mL COMPLICATIONS: None SPECIMENS: None DRAINS: None PREOPERATIVE ANTIBIOTICS: Ancef 2g IMPLANTS: 1. J&J Attune #4 posterior stabilized femur 2. #4 fixed-bearing tibia 3. #4 posterior stabilized, 5 mm fixed-bearing polyethylene 4. 35 patella INDICATIONS: The patient is a 79-year-old with a longstanding history of severe, unrelenting left knee pain secondary to end-stage (grade IV) left knee osteoarthritis. Despite appropriate nonoperative management, including activity modification, anti-inflammatories, sbhs-doh-beaszsk pain medication, bracing, physical therapy, and injections they continue to have pain and disability. Operative intervention was offered. The risks, benefits and expected outcomes were discussed in detail. These included but were not limited to: Infection, bleeding, injury to blood vessel or nerve, venous thromboembolism. All questions were answered to their satisfaction. Use of an lpn medical assistant was necessary throughout the case for patient positioning and safety, soft tissue retraction, and closure. PROCEDURE: Spinal anesthesia was administered. The patient was placed supine on the operating table. The lpn medical assistant made sure the patient was positioned appropriately. The lower extremity was prepped and draped in the usual sterile fashion. The limb was exsanguinated with the Mikael bandage. The pneumatic tourniquet was inflated to 225mmHg. A standard anterior incision was made with the knee in flexion. Subcutaneous dissection was sharply taken through fascial layer #1. Full-thickness medial and lateral flaps were elevated. The lpn medical assistant retracted the soft tissues and protected them throughout the case. A standard subvastus approach was made. The patella was subluxed. The infrapatellar fat pad was preserved. The menisci and cruciate ligaments were sharply d?brided. Marginal osteophytes were d?brided with the rongeur. The drill was used to penetrate the femoral canal. The intramedullary femoral guide was placed for a 5-degree valgus cut, removing 10 mm off the distal femur. The saw was used to make the cut. Whitesides line and the trans epicondylar axis were marked. The femoral sizing guide was pinned onto the distal femur. Three degrees of external rotation nicely parallels the transepicondylar axis. Pins were placed for posterior referencing. The four-in-one cutting guide was pinned onto the distal femur. The anterior, posterior, and chamfer cuts were made. The lpn medical assistant protected the collateral ligaments. The box cutting guide was pinned. The box cuts were made. The boxed trial was placed and was an excellent fit. Drill holes for the lugs were made. Attention was then turned to the proximal tibia. The extramedullary tibial guide was placed for a neutral varus/valgus cut with 5 degrees of posterior slope, removing 2 mm based off the medial tibial surface. The lpn medical assistant protected the collateral ligaments and the neurovascular bundle. The saw was used to make the cut. Trial components were placed. The knee was nicely balanced in both flexion and extension. The trial components were removed. The tray was placed in appropriate rotation, parallel to our tibial cutting pins. It was pinned by the lpn medical assistant and the drill and the punch were used. The tray was removed. The punch was used again. We placed a bone plug in the femoral canal. Attention was then turned to the patella. Ute patellar thickness was 21 mm. The lobster claw resection guide was used with the 7.5 mm alvin. The saw was used to make the cut. Drill holes were made by the lpn medical assistant. The trial was placed and was an excellent fit. Cancellous surfaces were irrigated with pulse lavage and thoroughly dried by the lpn medical assistant. We cemented the tibial component, then the femoral component. We impacted the 5 mm polyethylene onto the tibial tray. The knee was brought into full extension. We then cemented the patellar component. Excessive cement was removed. The cement was allowed to harden. The knee was taken through a range of motion and was found to be nicely balanced in both flexion and extension. The patella tracks centrally. The lpn medical assistant did a three minute dilute Betadine solution soak. The lpn medical assistant irrigated the wound with 3 liters of normal saline via pulse lavage. The lpn medical assistant reapproximated the extensor mechanism with #1 Vicryl in an interrupted [id number]-rhgyd fashion. The lpn medical assistant then ran the extensor mechanism with a #1 PDO Stratafix. The lpn medical assistant closed the subcutaneous tissues with a 3-0 Stratafix and the skin with a running 3-0 Stratafix in a subcuticular fashion. Glue was used to seal the skin. The lpn medical assistant placed a dry dressing. Sponge and needle counts were correct x2. The patient tolerated the procedure well. There were no apparent complications. They were carefully transferred to the hospital bed and taken to the postanesthesia care unit in satisfactory condition. PLAN: The patient will be mobilized with physical therapy. The usual dose of Eliquis can be restarted. They will be discharged to home once medically appropriate.
--- NOTE | 2024-11-11 13:22 | P.ANES_ITS ---
Anesthesia Charges Start Date/Time Anesthesia Start Date: 11/11/24 Anesthesia Start Time: 11:05 Stop Date/Time Anesthesia Stop Date: 11/11/24 Anesthesia Stop Time: 13:18 Summary Extremes of Age - Over 70 or under 1: MIDDLE SCHOOL ASSISTANT PRINCIPAL Coding CPT Codes CPT Codes: ANESTH KNEE ARTHROPLASTY - 94998 ([id number]) P3 - PATIENT W/SEVERE SYS DISEASE, QK - LIVESTOCK FEEDER 2-4 CNCRNT ANES PROC, QX - MIDDLE SCHOOL ASSISTANT PRINCIPAL SVC W/ MD MED DIRECTION Additional Codes: Summary - Extremes of Age - Over 70 or under 1: MIDDLE SCHOOL ASSISTANT PRINCIPAL ([id number])
--- NOTE | 2024-11-11 13:22 | W.ANESCHARGE ---
Anesthesia Charges Start Date/Time Anesthesia Start Date: 11/11/24 Anesthesia Start Time: 11:05 Stop Date/Time Anesthesia Stop Date: 11/11/24 Anesthesia Stop Time: 13:18 Summary Extremes of Age - Over 70 or under 1: ELECTRONICS TEST ENGINEER Coding CPT Codes CPT Codes: ANESTH KNEE ARTHROPLASTY - 29910 ([id number]) P3 - PATIENT W/SEVERE SYS DISEASE, QK - LACE INSPECTOR 2-4 CNCRNT ANES PROC, QX - ELECTRONICS TEST ENGINEER SVC W/ MD MED DIRECTION Additional Codes: Summary - Extremes of Age - Over 70 or under 1: ELECTRONICS TEST ENGINEER ([id number])
[2024-11-11] MEDS: LACTATED RINGERS 1000 ML 1,000 ML 75 ML IV (14:26)
--- NOTE | 2024-11-11 16:27 | PM.IMCN1 ---
Date of Consult Patient: Roland Patient Consult date: 11/11/24 Requesting Physician: Orthopedics Primary Care Provider: Bryant Barrios MD Consult Narrative Reason for consult: medical management Narrative: Sultana Novoa is a 79 year old female past medical history significant for hypertension, hyperlipidemia, hypothyroidism, NATALIA, atrial fibrillation, CKD stage 3 is postop day #0 status post left total knee with Dr. Sands. Postoperatively, patient has had a difficult time controlling pain. Block is wearing off. She is having increased nerve pain which she has had in the past with a history of nerve ablation. otherwise, denies headache or dizziness. No nausea or vomiting. Tolerating orals. There have been no perioperative complications or nursing concerns reported. Estimated total blood loss documented as 0ml. Updated and reviewed the active medical problems, past medical history, past surgical history, social history, allergies and medications in our electronic EMR. Review of Systems Narrative: REVIEW OF SYSTEMS: Complete review of systems performed and negative unless otherwise stated in HPI or below. [facility] Medical History (Updated 11/11/24 @ 16:59 by Neema Hodges PA-C) Melanoma (11/28/17) ?C43.9 - Malignant melanoma of skin, unspecified (ICD-10) Prediabetes ?R73.03 - Prediabetes (ICD-10) Stage 3 chronic kidney disease ?N18.30 - Chronic kidney disease, stage 3 unspecified (ICD-10) Obstructive sleep apnea syndrome ?G47.33 - Obstructive sleep apnea (adult) (pediatric) (ICD-10) Primary osteoarthritis of both knees ?M17.0 - Bilateral primary osteoarthritis of knee (ICD-10) Allergic rhinitis ?J30.9 - Allergic rhinitis, unspecified (ICD-10) Coronary artery disease ?I25.10 - Atherosclerotic heart disease of [place] coronary artery without angina pectoris (ICD-10) Hyperlipidemia ?E78.5 - Hyperlipidemia, unspecified (ICD-10) Hypothyroidism ?E03.9 - Hypothyroidism, unspecified (ICD-10) Essential hypertension ?I10 - Essential (primary) hypertension (ICD-10) Atrial fibrillation ?I48.91 - Unspecified atrial fibrillation (ICD-10) Surgical History History of arthroplasty of left knee (11/11/24) ?Z96.652 - Presence of left artificial knee joint (ICD-10) History of gastric surgery (06/12/24) ?Z98.890 - Other specified postprocedural states (ICD-10) H/O bilateral breast reduction surgery ?Z98.890 - Other specified postprocedural states (ICD-10) History of esophagogastroduodenoscopy (EGD) (04/2024) ?Z98.890 - Other specified postprocedural states (ICD-10) Status post blepharoplasty of both eyes ?Z98.890 - Other specified postprocedural states (ICD-10) History of phacoemulsification of cataract of both eyes with intraocular lens implantation ?Z98.41 - Cataract extraction status, right eye (ICD-10) ?Z98.42 - Cataract extraction status, left eye (ICD-10) ?Z96.1 - Presence of intraocular lens (ICD-10) Hx of colonoscopy ?Z98.890 - Other specified postprocedural states (ICD-10) S/P RAJINDER-BSO ?Z90.710 - Acquired absence of both cervix and uterus (ICD-10) ?Z90.722 - Acquired absence of ovaries, bilateral (ICD-10) ?Z90.79 - Acquired absence of other genital organ(s) (ICD-10) Social History Narrative: Lives in [place] with Sarthak (medical decision maker if needed). Grown children in [place]. No concerning ETOH use, nonsmoker. Full Code. What is your current living situation?: I have a place to live at present, but am concerned about future Problems where you live: no known problems Problems where you live details: none In the past 12 months, utilities in danger of being shut off: no In past 12 months, lack of transportation kept you from medical appts, meetings, work, or getting things needed for daily living: no In the past 12 mos, have been you worried that your food would run out before you had money to buy more?: never true In the past 12 mos, the food you bought just didn't last and you didn't have money to buy more?: never true Highest level of school completed/degree received: some college, no degree Smoking Status: Never smoker Do you use any of these nicotine containing products: None Second hand tobacco smoke exposure: No How often do you have a drink containing alcohol: monthly or less How many standard drinks containing alcohol do you have on a typical day: 1 or 2 How often do you have six or more drinks on one occasion: Never AUDIT-C Alcohol total score: 1 Non-prescribed substance use: denies use Caffeine: Yes How often does anyone, including family, friends and others, physically hurt you: never How often does anyone, including family, friends and others, insult or talk down to you: never How often does anyone, including family, friends and others, threaten you with harm: never How often does anyone, including family, friends and others, scream or curse at you: never service: No Health Related Social Needs: housing instability, housed, with risk of homelessness (Z59.811) Meds Home Medications and Allergies Home Medications ?Medication ?Instructions ?Recorded ?Confirmed ?Type carvedilol 25 mg tablet 25 mg PO BID 07/01/23 11/11/24 History levothyroxine 75 mcg tablet 75 mcg PO HS 07/01/23 11/11/24 History verapamil 180 mg 24 hr 180 mg PO DAILY 07/01/23 11/11/24 History capsule,extended release ferrous sulfate 325 mg (65 mg 325 mg PO DAILY #100 tabs 12/29/23 11/11/24 Rx iron) tablet apixaban 5 mg tablet (Eliquis) 5 mg PO BID 09/29/24 11/11/24 History esomeprazole magnesium 40 mg 40 mg PO DAILY 09/29/24 11/11/24 History capsule,delayed release furosemide 20 mg tablet 20 mg PO DAILY 09/29/24 11/11/24 History ondansetron 4 mg disintegrating 4 mg PO Q8H PRN 09/29/24 10/15/24 History tablet acetaminophen 500 mg capsule 500 - 1,000 mg (1 - 2 x 500 mg) PO 11/11/24 Rx Q6H PRN pain #100 caps losartan 100 mg tablet 100 mg PO HS 11/11/24 11/11/24 History oxycodone 5 mg tablet 2.5 - 5 mg (0.5 - 1 x 5 mg) PO 11/11/24 Rx Q4-6H PRN Pain #42 tabs sennosides 8.6 mg tablet (Senna 17.2 mg (2 x 8.6 mg) PO BID PRN 11/11/24 Rx Lax) constipation #100 tabs Allergies Allergy/AdvReac Type Severity Reaction Status Date / Time amlodipine Allergy Unknown Verified 11/11/24 08:57 atorvastatin Allergy Unknown Diarrhea Verified 11/11/24 08:57 adhesive Allergy Rash Verified 11/10/24 12:24 cholest off Allergy Unknown Uncoded 10/15/24 13:22 Exam Narrative: Exam Narrative: PHYSICAL EXAM General: Pleasant, conversant, NAD HEENT: Normocephalic, atraumatic, sclera white, EOMI, oral mucosa moist Cardiovascular: RRR, S1S2. No pitting edema Pulmonary: CTA bilaterally without rhonchi, rales, expiratory wheezes. No dyspnea Neurological: Alert, answering questions appropriately, cranial nerves intact, no focal findings Extremities: No gross joint deformity or swelling. Postoperative dressing in place, dry. Neurovascularly intact Skin: Warm, dry. Const: Vital Signs, click to edit/add: Vital Signs - 24 hr 11/11/24 09:25 11/11/24 10:34 11/11/24 10:40 Temperature 99.2 F Pulse Rate 68 61 56 L Pulse Rate [Right Pulse Oximeter] Respiratory Rate 20 20 20 Blood Pressure 146/65 H 180/72 H 144/69 H Blood Pressure [Le ft Arm] Pulse Oximetry 96 98 100 Oxygen Delivery Me thod Room Air Nasal Cannula Nasal Cannula Oxygen Flow Rate 2 2 11/11/24 10:45 11/11/24 11:00 11/11/24 13:15 Temperature 98.5 F Pulse Rate 58 L 64 67 Pulse Rate [Right Pulse Oximeter] Respiratory Rate 20 20 16 Blood Pressure 142/61 H 108/65 103/55 L Blood Pressure [Le ft Arm] Pulse Oximetry 99 94 91 Oxygen Delivery Me thod Nasal Cannula Nasal Cannula Room Air Oxygen Flow Rate 2 2 11/11/24 13:20 11/11/24 13:25 11/11/24 13:30 Temperature Pulse Rate 63 58 L 62 Pulse Rate [Right Pulse Oximeter] Respiratory Rate 18 16 14 Blood Pressure 111/52 L 106/53 L 110/56 L Blood Pressure [Le ft Arm] Pulse Oximetry 93 94 94 Oxygen Delivery Me thod Oxygen Flow Rate 11/11/24 13:35 11/11/24 13:40 11/11/24 13:45 Temperature Pulse Rate 58 L 58 L 57 L Pulse Rate [Right Pulse Oximeter] Respiratory Rate 14 16 15 Blood Pressure 112/59 L 119/61 122/57 L Blood Pressure [Le ft Arm] Pulse Oximetry 96 95 94 Oxygen Delivery Me thod Oxygen Flow Rate 11/11/24 13:50 11/11/24 14:05 11/11/24 14:20 Temperature 97.1 F L 97.1 F L 97.1 F L Pulse Rate 51 L Pulse Rate [Right Pulse Oximeter] 57 L 59 L Respiratory Rate 16 14 14 Blood Pressure 121/60 Blood Pressure [Le ft Arm] 148/73 H 152/68 H Pulse Oximetry 94 91 94 Oxygen Delivery Me thod Room Air Room Air Oxygen Flow Rate 11/11/24 14:35 11/11/24 14:50 11/11/24 15:05 Temperature 97.1 F L 96.7 F L 97.0 F L Pulse Rate Pulse Rate [Right Pulse Oximeter] 61 55 L 58 L Respiratory Rate 14 14 14 Blood Pressure Blood Pressure [Le ft Arm] 142/64 H 159/69 H 149/68 H Pulse Oximetry 99 99 100 Oxygen Delivery Me thod Room Air Room Air OxyMask Oxygen Flow Rate 1 Assessment and Plan Assessment and plan (1) Osteoarthritis of left knee: Problem comment: -POD#0 s/p Left total knee, Dr. Sands, 11/11/2024 -perioperative management including pain management and anticoagulation per Orthopedic surgery - home medication includes Eliquis 5mg bid -encourage postoperative pulmonary hygiene, incentive spirometry, CPAP for NATALIA -PT OT consults -hemoglobin prior to surgery 11.2, EBL reported as 0 mL, could consider hemoglobin in the morning as on anticoagulant if necessary -plan to discharge home with spouse and daughter tomorrow Status: Acute (2) Atrial fibrillation: Problem comment: - diagnosed June 2023 - anticoagulated on Eliquis - shelter monitor - resume beta-greta postoperatively, Eliquis per Orthopedic surgery Status: Acute (3) Essential hypertension: Problem comment: - resume home medications upon discharge, consider antihypertensive in the morning if needed Status: Acute (4) Obstructive sleep apnea syndrome: Problem comment: - continue CPAP (did not bring it with and would prefer not to sleep with it for now) Status: Acute Plan May resume home medications upon discharge. Consider antihypertensives in the morning if necessary. Hospital medicine team will sign off. Please contact our service with any questions or concerns. Total Time Spent Total Time Spent: Today I spent 55 minutes seeing the patient, reviewing Expanse and EPIC notes/diagnostics, discussing the care plan with our care time that includes social work, PT/OT, pharmacy, RT, long-term and documenting my impressions and plan in the medical record.
[2024-11-11] MEDS: CEFAZOLIN 2 GM in 0.9 % SODIUM CHLORIDE Mini-bag 100 ML IVPB (16:33)
[2024-11-11] MEDS: ONDANSETRON 2 MG/ML inj 4 MG IVP (17:45)
--- NOTE | 2024-11-11 18:51 | PC.NURSE ---
End of Shift: Patient pleasant and cooperative, A&O. VSS, afebrile. Pt reports pain on her left knee, managed with PRN medication, see MAR. Patient also reports nausea, managed with PRN medication, see MAR. Dressing to left knee C/D/I. Pt has not been up from surgery. Regular diet.
[2024-11-11] MEDS: APIXABAN 5 MG TABLET PO (21:57)
[2024-11-11] MEDS: PROCHLORPERAZINE 5 MG/ML VIAL IV (21:58)
[2024-11-12 00:03] VITALS: BP 193/94; PULSE 83; RESP 14; TEMP 36.2; O2SAT 93
[2024-11-12] MEDS: CEFAZOLIN 2 GM in 0.9 % SODIUM CHLORIDE Mini-bag 100 ML IVPB (01:22)
[2024-11-12 02:34] VITALS: BP 160/79; PULSE 90; RESP 16; TEMP 36.8; O2SAT 94
--- NOTE | 2024-11-12 05:09 | PC.NURSE ---
Pt pleasant, alert and oriented. VSS. Tele?reads sinus rhythm with BBB and first-degree AV. Pt stated pain rated 6/10 though did not want any medication because she ?doesn't like the way they make her feel,? offered alternative options, pt still refused. She further stated they make her nauseous and dizzy. Pt had two episodes of emesis, discussed with Dr. Tracy, Compazine order was put in. Pt stated much improvement after dose, has not had an emesis since around 2200. Pt premedicated to get up for the first time and go to bathroom, tolerated well. Dressings C/D/I. Pt SBA. Refusing ice pack to op site. Pt in bed, appears to be resting, call light within reach.?
[2024-11-12] MEDS: ACETAMINOPHEN 500 MG TABLET 1000 MG PO ×2 (05:15→12:32)
[2024-11-12 06:59] VITALS: PULSE 83
[2024-11-12 07:15] VITALS: PULSE 88; RESP 16
[2024-11-12 07:20] VITALS: BP 164/77; PULSE 88; RESP 16; TEMP 36.6; O2SAT 92
--- NOTE | 2024-11-12 07:58 | PM.ORPN ---
Subjective Subjective Time Seen by Provider: 07:58 Date Seen: 11/12/24 Principal diagnosis: Status post left knee replacement Interval history: Mckenzie is comfortable. She states she got good sleep last night. She will discharge to home today. Ortho Exam Narrative Exam Narrative: Alert and oriented x3. Patient is in no acute distress. Converses without labored breathing. Hearing is grossly intact. Ambulates with a walker. Examination of the left knee shows the dressing is intact. No erythema or drainage or warmth or sign of infection. She is able to straight leg raise. CMS intact left lower extremity. Calves are soft and nontender. Minimal edema about the knee. Const Vital Signs, click to edit/add: Vital Signs - 24 hr 11/11/24 09:25 11/11/24 10:34 11/11/24 10:40 Temperature 99.2 F Pulse Rate 68 61 56 L Pulse Rate [Right Pulse Oximeter] Respiratory Rate 20 20 20 Blood Pressure 146/65 H 180/72 H 144/69 H Blood Pressure [Left Arm] Pulse Oximetry 96 98 100 Oxygen Delivery Method Room Air Nasal Cannula Nasal Cannula Oxygen Flow Rate 2 2 11/11/24 10:45 11/11/24 11:00 11/11/24 13:15 Temperature 98.5 F Pulse Rate 58 L 64 67 Pulse Rate [Right Pulse Oximeter] Respiratory Rate 20 20 16 Blood Pressure 142/61 H 108/65 103/55 L Blood Pressure [Left Arm] Pulse Oximetry 99 94 91 Oxygen Delivery Method Nasal Cannula Nasal Cannula Room Air Oxygen Flow Rate 2 2 11/11/24 13:20 11/11/24 13:25 11/11/24 13:30 Temperature Pulse Rate 63 58 L 62 Pulse Rate [Right Pulse Oximeter] Respiratory Rate 18 16 14 Blood Pressure 111/52 L 106/53 L 110/56 L Blood Pressure [Left Arm] Pulse Oximetry 93 94 94 Oxygen Delivery Method Oxygen Flow Rate 11/11/24 13:35 11/11/24 13:40 11/11/24 13:45 Temperature Pulse Rate 58 L 58 L 57 L Pulse Rate [Right Pulse Oximeter] Respiratory Rate 14 16 15 Blood Pressure 112/59 L 119/61 122/57 L Blood Pressure [Left Arm] Pulse Oximetry 96 95 94 Oxygen Delivery Method Oxygen Flow Rate 11/11/24 13:50 11/11/24 14:05 11/11/24 14:20 Temperature 97.1 F L 97.1 F L 97.1 F L Pulse Rate 51 L Pulse Rate [Right Pulse Oximeter] 57 L 59 L Respiratory Rate 16 14 14 Blood Pressure 121/60 Blood Pressure [Left Arm] 148/73 H 152/68 H Pulse Oximetry 94 91 94 Oxygen Delivery Method Room Air Room Air Oxygen Flow Rate 11/11/24 14:35 11/11/24 14:50 11/11/24 15:00 Temperature 97.1 F L 96.7 F L Pulse Rate Pulse Rate [Right Pulse Oximeter] 61 55 L Respiratory Rate 14 14 14 Blood Pressure Blood Pressure [Left Arm] 142/64 H 159/69 H Pulse Oximetry 99 99 99 Oxygen Delivery Method Room Air Room Air OxyMask Oxygen Flow Rate 1 11/11/24 15:05 11/11/24 15:35 11/11/24 16:05 Temperature 97.0 F L 97.3 F L Pulse Rate Pulse Rate [Right Pulse Oximeter] 58 L 61 67 Respiratory Rate 14 14 14 Blood Pressure Blood Pressure [Left Arm] 149/68 H 148/65 H 157/77 H Pulse Oximetry 100 100 98 Oxygen Delivery Method OxyMask OxyMask OxyMask Oxygen Flow Rate 1 1 4 11/11/24 17:05 11/11/24 18:05 11/11/24 19:25 Temperature 96.9 F L 97.4 F L 97.6 F Pulse Rate Pulse Rate [Right Pulse Oximeter] 55 L 65 Respiratory Rate 14 16 16 Blood Pressure Blood Pressure [Left Arm] 189/77 H 179/89 H 125/68 Pulse Oximetry 98 96 100 Oxygen Delivery Method Room Air Room Air OxyMask Oxygen Flow Rate 11/11/24 20:11 11/11/24 23:00 11/11/24 23:00 Temperature 97.9 F Pulse Rate 69 Pulse Rate [Right Pulse Oximeter] 73 Respiratory Rate 16 Blood Pressure Blood Pressure [Left Arm] 199/91 H Pulse Oximetry 95 93 Oxygen Delivery Method Room Air Room Air Oxygen Flow Rate 11/11/24 23:00 11/12/24 00:03 11/12/24 02:34 Temperature 97.2 F L 98.3 F Pulse Rate Pulse Rate [Right Pulse Oximeter] 83 83 90 Respiratory Rate 14 14 16 Blood Pressure Blood Pressure [Left Arm] 193/94 H 160/79 H Pulse Oximetry 93 94 Oxygen Delivery Method Room Air Oxygen Flow Rate 11/12/24 06:59 11/12/24 07:20 11/12/24 07:20 Temperature 97.8 F Pulse Rate 83 Pulse Rate [Right Pulse Oximeter] 88 Respiratory Rate 16 16 Blood Pressure Blood Pressure [Left Arm] 164/77 H Pulse Oximetry 92 92 Oxygen Delivery Method Room Air Room Air Oxygen Flow Rate 4 Assessment and Plan Assessment and plan (1) History of arthroplasty of left knee: Problem details: Left total knee arthroplasty (11/11/2024, Dr. Sands) Status: Acute Assessment and Plan: Mckenzie is doing well this morning. She is comfortable. She will discharge to home today. Plan for discharge is today to home if they meet discharge criteria. DVT prophylaxis includes Eliquis, Compression stockings as needed for swelling. Frequent ambulation, every hour throughout the day. Remove dressing in 1 week. Observe wound and phone Orthopedics with any questions or concerns Return to clinic in 1-2 weeks for a wound check as scheduled Return to clinic in 6 weeks with surgeon Minimize narcotic use. Wean off and discontinue soon as possible. Activities as tolerated. No strenuous activity. Outpatient physical therapy as scheduled. Ice and elevate the operative extremity. No restriction on ice. She has anti nausea medication at home in the event she has narcotic induced nausea.
[2024-11-12] MEDS: APIXABAN 5 MG TABLET PO (08:46)
[2024-11-12] MEDS: ONDANSETRON 2 MG/ML inj 4 MG IVP (09:37)
--- NOTE | 2024-11-12 09:47 | PC.SOCIAL ---
Social Service Consult: SW met with patient, patient's , and daughter. Patient and family state they feel they are well set up and have no concerns or needs for resources/supports at this time. SW to assist if needs arise.
[2024-11-12] MEDS: PROCHLORPERAZINE 5 MG/ML VIAL IV (11:21)
[2024-11-12 11:54] VITALS: BP 160/70; PULSE 68; RESP 16; TEMP 36.7; O2SAT 92
--- NOTE | 2024-11-12 14:04 | PC.NURSE ---
End of Shift: pt has been alert x2 he was off on day of week and year. Pt pleasant and cooperative, A&O. VSS, afebrile. Pt reports pain on her left knee, managed with PRN medication, see MAR. Patient also reports nausea, managed with PRN medication, see MAR. Dressing to left knee C/D/I. she is eating and drinking and voiding. no emesis this shift, got also got a nausea patch. went over discharge packet with pt and family. went over medications appointments, education and instructions. she went over pt belonging list. SL was d/c intact. she got a w/c ride out.
== END 2024-11-12 13:15 | disposition home or self-care (01) ==
LOC: OR 08:49 → MEDSURG 08:50
PROVIDERS: PCP Student in an Organized Health Care Education/Training Program; Visit Provider Orthopaedic Surgery
PROC: (CPT 27447; principal; 2024-11-11 10:45)
DX: M17.12 Unilateral primary osteoarthritis, left knee (principal); G89.18 Other acute postprocedural pain; G47.33 Obstructive sleep apnea (adult) (pediatric); I48.91 Unspecified atrial fibrillation; Z79.01 Long term (current) use of anticoagulants; I12.9 Hypertensive chronic kidney disease with stage 1 through stage 4 chronic kidney disease, or unspecified chronic kidney disease; N18.30 Chronic kidney disease, stage 3 unspecified; E03.9 Hypothyroidism, unspecified; E78.5 Hyperlipidemia, unspecified
CPT/HCPCS: 27447; 01402; 64447; 64454; 73560; 76942; 97110; 97116; 97161; 97165; 97530; 97535; 99100; A9270; C1776; J0665; J0690; J0780; J1171; J2250; J2405; J2704; J3010; J7120